=== PATIENT | female | born 1985 | race Caucasian/White ===

== ENCOUNTER 2020-05-03 00:32 | Day surgery (SDC) | payer OTHER, SELFPAY ==
[2020-05-03 13:05] VITALS: BP 120/93; PULSE 101; RESP 16; TEMP 36.7; O2SAT 100
[2020-05-03] MEDS: ACETAMINOPHEN 500 MG TABLET 1000 MG PO (13:33)
--- NOTE | 2020-05-03 14:04 | WPDANESEPPF ---
Anes - Initial Pre Proc Eval Procedure: Operation Date: 05/03/20 15:00 Proposed Procedures p Suction Dilation And Curettage - Misa Ortiz MD Date/Time: 05/03/20 14:04 Surgeon: Misa Ortiz MD Pre Op Diagnosis: Missed AB Patient Data Age: 34 Gender: F Height: 1.65 m Weight: 81.5 kg Last Vital Signs Temp 36.7 C 05/03/20 13:05 Pulse 101 H 05/03/20 13:05 Resp 16 05/03/20 13:05 BP 120/93 H 05/03/20 13:05 Pulse Ox 100 05/03/20 13:05 Allergies Allergy/AdvReac Type Severity Reaction Status Date / Time No Known Allergies Allergy Mild Verified 05/03/20 13:19 Home Medications Medication Instructions Recorded Confirmed Type fluticasone propionate 50 2 spray NASAL DAILY #18.2 ml 11/28/19 05/03/20 Rx mcg/actuation nasal spray,suspension ondansetron HCl 4 mg tablet 4 mg PO Q8H PRN #20 tablet 12/24/19 05/03/20 Rx acetaminophen-caffeine [Excedrin 2 tablet PO Q6H PRN 05/02/20 05/03/20 History Tension Headache] xdiovkyuot-wyernaedyy-pdv-cod 1 cap PO Q6-8H PRN 05/02/20 05/03/20 History clonazepam 0.5 mg PO BID 05/02/20 05/03/20 History cyclobenzaprine 5 mg PO TID PRN 05/02/20 05/03/20 History sumatriptan succinate 50 mg PO ONCE PRN 05/02/20 05/03/20 History trazodone 50 mg PO HS PRN 05/02/20 05/03/20 History magnesium chloride [Mag Release] 64 mg PO DAILY 05/03/20 05/03/20 History jpxsdgfw-amw-Jy-FA 1 tablet PO DAILY 05/03/20 05/03/20 History [] vitamin B complex 1 cap PO DAILY 05/03/20 05/03/20 History Patient hx anesthesia problems: none Family hx anesthesia problems: none PMFSH Past Medical History Medical History (Updated 05/03/20 @ 14:04 by Brandin Gutierrez DO) Allergic rhinitis Chronic migraine History of panic attacks Hx of thyroid nodule MDD (major depressive disorder), recurrent episode, moderate Migraine, unspecified, not intractable, without status migrainosus Family History Family History (Updated 01/11/14 @ 07:13 by DOCTOR UNKNOWN) Father Family history of arthritis Social History Social History (Updated 11/28/19 @ 09:43 by Ana Maria Waldrop) Social History: Smoking status: Never smoker Second hand tobacco smoke exposure: No Alcohol intake: current Drinks per week: 4 Substance use: never Substance use type: does not use Living arrangements: with family Additional living arrangements comments: AND CHILD Gender identity (if verbalized by the patient): Female Spiritual care concerns: No Anes - Eval Final PreProcedure Day of Procedure 05/03/20 14:04 Patient weight: overweight Heart: regular rate and rhythm Lungs: clear to auscultation and normal air movement Airway: Mallampati scale class II Neurological: alert and oriented Last oral intake: >/= 8 hours ASA classification: II Emergent: no Anesthetic plan: proceed Anesthesia type and monitoring: general GIVS and standard monitoring Informed Consent: The patient's anesthetic plan and its attendant risks and benefits were discussed with the patient/family/POA. Questions were solicited and answers provided to the satisfaction of the patient/family/POA.
[2020-05-03] MEDS: ONDANSETRON INJ 4 MG/2 ML VIAL IV PUSH (14:14)
[2020-05-03] MEDS: LACTATED RINGERS 1,000 ML 30 ML IV CONT (14:14)
--- NOTE | 2020-05-03 14:35 | WPDHPUPDATE1 ---
History and Physical Update Update Date/Time: 05/03/20 14:35 History and Physical has been reviewed, including an updated exam of the patient. There are NO changes in the patient's condition. Risks, benefits, and alternatives have been discussed and questions answered. Patient agrees to proceed with procedure.
[2020-05-03] MEDS: KETOROLAC 15 MG/ML VIAL (*BKC) IV PUSH (15:03)
[2020-05-03 15:12] VITALS: BP 118/76; PULSE 92; RESP 20
--- NOTE | 2020-05-03 15:14 | P.OP_ITS ---
Procedure Note - Detailed Date of procedure: 05/03/20 Pre-op diagnosis: Missed AB Post-op diagnosis: same Procedure performed: Suction D&C Description of procedure: The patient was taken the operating room. She has prepped and draped in dorsal lithotomy position after induction of mac anesthesia. A speculum was placed in the vagina. The cervix was grasped with a tenaculum. The cervix was injected at 3 and 9:00 a.m. with 1% lidocaine. The cervix was dilated up to 8 mm using Warner dilators. An 8 curved plastic suction curette was then applied to the intrauterine cavity. All of the surfaces in the intrauterine cavity were curettage under VAC. A sharp medium-size curette was then used to curettage all the surfaces to confirmed the removal of all the products conception. When all surfaces for bleed to be clean the curette was r emoved. The suction curette was then reapplied to remove all the debris. The procedure was terminated. The tenaculum was removed. The speculum was removed. The patient tolerated the procedure well. She was taken recovery room in stable condition. Anesthesia: MAC Surgeon: Misa Ortiz MD Estimated blood loss (mL): 25 Drains: No Packing: No Pathology: yes Complications: No immediate complications Condition: stable Disposition: PACU Findings: Normal vulva vagina and cervix. The moderate amounts of products conception. 8 cm uterus.
[2020-05-03] MEDS: fentaNYL CITRATE INJ (*CRX) 100 MCG/2 ML VIAL 25 MCG IV PUSH ×4 (15:21→15:37)
[2020-05-03] MEDS: oxyCODONE HCL (*CRX) 5 MG TAB IR PO (15:44)
== END 2020-05-03 16:24 | disposition home or self-care (01) ==
PROVIDERS: PCP Family Medicine; Visit Provider Obstetrics & Gynecology
PROC: (CPT 59820; principal; 2020-05-03 15:00)
DX: O02.1 Missed abortion (principal); F41.0 Panic disorder [episodic paroxysmal anxiety]; F32.9 Major depressive disorder, single episode, unspecified; J30.9 Allergic rhinitis, unspecified
CPT/HCPCS: 59820; 88305; A9270; J1885; J2250; J2405; J2704; J3010; J7120

== ENCOUNTER 2021-03-31 11:15 | Emergency (ER) | payer OTHER, SELFPAY ==
[2021-03-31 11:22] VITALS: BP 121/93; PULSE 89; RESP 16; TEMP 36.7; O2SAT 100
--- NOTE | 2021-03-31 11:34 | ED.WOUNDLAC ---
HPI - Wound/Laceration General Chief Complaint: Wound/Laceration Stated Complaint: lt hand thumb laceratin Time Seen by Provider: 03/31/21 11:25 Source: patient, family and RN notes reviewed History of Present Illness HPI narrative: Patient is a 35-year-old female who presents the urgent care with complaints of a laceration to the tip of the left thumb. Patient states it happened last night and she cut it with a shearing knife. Patient believes that she is up-to-date on her tetanus shot. States that the bleeding was controlled as of last night. No other acute complaints or injuries. No acute distress noted. Patient states that she has washed out the wound, cleaned it with peroxide and put Neosporin on it. Patient aware of the plan of care. Some parts of this dictation were generated by voice recognition software and may contain typographical and/or grammatical inaccuracies. Related Data Home Medications Medication Instructions Recorded Confirmed Excedrin Tension Headache 2 tablet PO Q6H PRN 05/02/20 05/03/20 xrqvrylphr-qymururanc-pgy-cod 1 cap PO Q6-8H PRN 05/02/20 05/03/20 clonazepam 0.5 mg PO BID 05/02/20 05/03/20 cyclobenzaprine 5 mg PO TID PRN 05/02/20 05/03/20 trazodone 50 mg PO HS PRN 05/02/20 05/03/20 magnesium chloride 64 mg PO DAILY 05/03/20 05/03/20 vitamin B complex 1 cap PO DAILY 05/03/20 05/03/20 xwuugtfcka-vrqhbhtmniscw-wltw cap 03/31/21 Allergies Allergy/AdvReac Type Severity Reaction Status Date / Time No Known Allergies Allergy Mild Verified 03/31/21 11:30 Review of Systems Review of Systems: CONSTITUTIONAL: Denies fever, chills, or sweats. EYES: Denies visual changes, redness, or discharge. ENT: Denies rhinorrhea, congestion, sore throat, or otalgia. CARDIOVASCULAR: Denies chest pain, palpitations, or edema. RESPIRATORY: Denies cough or dyspnea. GASTROINTESTINAL: Denies abdominal pain, nausea, vomiting, or diarrhea. GENITOURINARY: Denies dysuria or hematuria. SKIN: Reports of a laceration to the tip of the left thumb MUSCULOSKELETAL: Denies back pain, joint pain, or myalgia. NEUROLOGIC: Denies headache, numbness, or weakness. All other systems reviewed are negative, except as documented in HPI. [facility] Past Medical History Medical History (Updated 03/31/21 @ 11:39 by CHRISTY Catherine) Allergic rhinitis Chronic migraine History of panic attacks Hx of thyroid nodule MDD (major depressive disorder), recurrent episode, moderate Migraine, unspecified, not intractable, without status migrainosus Family History Family History (Updated 01/11/14 @ 07:13 by DOCTOR UNKNOWN) Father Family history of arthritis Social History Social History (Updated 11/28/19 @ 09:43 by Ana Maria Waldrop) Social History: Smoking status: Never smoker Second hand tobacco smoke exposure: No Alcohol intake: current Drinks per week: 4 Substance use: never Substance use type: does not use Additional living arrangements comments: AND CHILD Gender identity (if verbalized by the patient): Female Spiritual care concerns: No Comments At the time of my signature, I reviewed and agree with the nursing past medical, surgical, social, and family history. There is no relevant family history pertinent to the patient complaint. Exam Narrative: GENERAL: This is a well-nourished, well-developed patient, in no apparent distress. Anxious HEAD: normocephalic, atraumatic. EYES: PERRL. Sclera clear/white. Vision is grossly intact. EARS: External ears normal NOSE: External nose normal with no obvious nasal discharge, nares without redness, no rhinorrhea. THROAT: Mucous membranes moist NECK: Neck supple CARDIOVASCULAR: Regular rate and rhythm without murmurs, gallops, or rubs. RESPIRATORY: Clear to auscultation. Breath sounds equal bilaterally. No wheezes, rales, or rhonchi. SKIN: 0.5 cm circular approximated laceration to the tuft of the left thumb. Warm, intact with no suspici
== END 2021-03-31 12:16 | disposition home or self-care (01) ==
PROVIDERS: Emergency Provider Nurse Practitioner Family; PCP Physician Assistant
DX: S61.012A Laceration without foreign body of left thumb without damage to nail, initial encounter (principal); W26.0XXA Contact with knife, initial encounter; F32.9 Major depressive disorder, single episode, unspecified; F41.0 Panic disorder [episodic paroxysmal anxiety]
CPT/HCPCS: 12001; 99212; G0463

== ENCOUNTER 2021-04-20 22:56 | Emergency (ER) | payer OTHER, SELFPAY ==
[2021-04-20 23:01] VITALS: BP 130/79; PULSE 103; RESP 20; TEMP 36.7; O2SAT 100
--- NOTE | 2021-04-20 23:35 | PC.NURSE ---
Pt seen ambulating out of ED with steady, even, unassisted gait. Per application security consultant present in wr, pt seen throwing something while walking across parking lot. Once outside, pt had thrown her full urine cup with specimen onto the ground, which was collected by application security consultant and disposed of by raheel HUTSON. Pt seen by application security consultant leaving hospital after getting into parked vehicle. No longer present. removed from tracker board.
== END 2021-04-21 00:10 | disposition left against medical advice (07) ==
LOC: ANHED 23:39
PROVIDERS: PCP Physician Assistant
DX: G43.909 Migraine, unspecified, not intractable, without status migrainosus (principal)
CPT/HCPCS: 99199

== ENCOUNTER 2022-05-19 07:59 | Outpatient (RCR) | payer OTHER, SELFPAY | END 2022-08-12 23:59 | disposition home or self-care (01) | LOC: ANHLAB 07:59 | PROVIDERS: PCP Physician Assistant; Visit Provider Obstetrics & Gynecology | DX: O20.0 Threatened abortion (principal); Z3A.00 Weeks of gestation of pregnancy not specified | CPT/HCPCS: 36415; 84702 ==

== ENCOUNTER 2022-05-22 00:55 | Day surgery (SDC) | payer OTHER, SELFPAY ==
[2022-05-19 09:24] VITALS: BMI 33.7
--- NOTE | 2022-05-19 09:29 | PC.NURSE ---
Report to the Outpatient Waiting Room, entrance under the green pavilion located off [facility], at time 1130 on date 05/22/22. Planned Procedure Time: 1330. Time changes happen often and if your time is changed the preop area will call you the afternoon before. - You and your visitor will be asked to self-screen and do not enter if you have any COVID symptoms. - Only one visitor is requested with a max of two and NO children visitors are allowed at this time. - The patient visitor may be requested to leave or wait in car when not with patient due to distancing restrictions. - A mask is REQUIRED within the hospital. Patients may have clear liquids (water, carbonated beverages, clear teas, apple juice) until 3 hours prior to surgery with a maximum of 20 ounces. - No food from midnight until time of surgery Take the following medications with a SIP of water the morning of surgery: NONE Medications to discontinue per physician: N/A Date to take last dose: N/A Please no make-up, nail welsh, hairspray, perfume, deodorant, or body powder the day of surgery. No jewelry (including any body piercings) or valuables the day of surgery, leave them at home. Please take a shower or bath the night before, or the morning of, surgery with an antibacterial soap. Wear comfortable, loose fitting clothing. - Jewelry must be removed prior to entering the operating room. Rings and piercings that are not removed may be cut off. - The hospital will not accept responsibility for valuables. - Please leave all valuables, including medications, at home the day of surgery. If you are going home after surgery, a licensed limousine driver must drive you home. - NO public transportation without another adult if you receive anesthesia. - We recommend that an adult stay with you for 24 hours following discharge. - We also recommend that you do not drive, make important decision, drink alcoholic beverages, or take any drugs that were not prescribed by your health care provider for at least 24 hours after your discharge time. Follow any additional instructions given to you from your surgeon. If you or anyone in your household have experienced Covid symptoms in the past week, please notify your surgeon or the nurse liaison at the phone number below for possible testing. Telephone instructions given to PT - ADILENE RODRIGUEZ and asked if any additional questions and then verbalized understanding. Patient advised to call surgeon office or pre surgery nurse liaison [phone] if any additional questions.
--- NOTE | 2022-05-21 09:48 | P.PNAN_ITS ---
Anes - Initial Pre Proc Eval Procedure: Operation Date: 05/22/22 12:00 Proposed Procedures p Suction Dilatation and Curettage - Misa Ortiz MD Date/Time: 05/21/22 09:48 Surgeon: Misa Ortiz MD Pre Op Diagnosis: missed AB Patient Data Age: 36 Gender: F Height: 1.64 m Weight: 90.72 kg Allergies Allergy/AdvReac Type Severity Reaction Status Date / Time No Known Allergies Allergy Mild Verified 05/22/22 10:07 Home Medications Medication Instructions Recorded Confirmed Type butalbital 50 mg-acetaminophen 300 1 cap PO Q6-8H PRN pain 05/02/20 05/19/22 History mg-caffeine 40 mg-codeine 30 mg cap aspirin 81 mg chewable tablet 81 mg PO DAILY 05/19/22 05/19/22 History progesterone micronized 200 mg 200 mg PO DAILY 05/19/22 05/19/22 History capsule Patient hx anesthesia problems: none Family hx anesthesia problems: none Results Review: All pre-operative results and documents have been reviewed as part of the pre- operative evaluation. [facility] Past Medical History Medical History (Updated 05/21/22 @ 09:49 by Edwin Alcaraz MD) Allergic rhinitis Chronic migraine History of panic attacks Hx of thyroid nodule MDD (major depressive disorder), recurrent episode, moderate Migraine, unspecified, not intractable, without status migrainosus Obesity Family History Family History (Updated 01/11/14 @ 07:13 by DOCTOR UNKNOWN) Father Family history of arthritis Social History Social History (Updated 11/28/19 @ 09:43 by Ana Maria Waldrop) Social History: Smoking status: Never smoker Second hand tobacco smoke exposure: No Alcohol intake: current Drinks per week: 4 Alcohol use details: WHEN NOT Substance use: never Substance use type: does not use Living arrangements: with family Additional living arrangements comments: AND CHILD Gender identity (if verbalized by the patient): Female Spiritual care concerns: No Anes - Eval Final PreProcedure Day of Procedure 05/21/22 09:48 Patient weight: obese Heart: regular rate and rhythm Lungs: clear to auscultation and normal air movement Airway: Mallampati scale class II Neurological: alert and oriented Last oral intake: >/= 8 hours ASA classification: II Emergent: no Anesthetic plan: proceed Anesthesia type and monitoring: general GIVS and standard monitoring Results Review: All pre-operative results and documents have been reviewed as part of the pre- operative evaluation. Informed Consent: The patient's anesthetic plan and its attendant risks and benefits were discussed with the patient/family/POA. Questions were solicited and answers provided to the satisfaction of the patient/family/POA.
[2022-05-22 10:09] VITALS: BP 129/81; PULSE 108; RESP 16; TEMP 36.4; O2SAT 99
[2022-05-22] MEDS: LACTATED RINGERS 1,000 ML 30 ML IV CONT (10:25)
[2022-05-22] MEDS: ACETAMINOPHEN 500 MG TABLET 1000 MG PO (10:30)
--- NOTE | 2022-05-22 12:08 | WPDHPUPDATE1 ---
History and Physical Update Update Date/Time: 05/22/22 12:08 History and Physical has been reviewed, including an updated exam of the patient. There are NO changes in the patient's condition. Risks, benefits, and alternatives have been discussed and questions answered. Patient agrees to proceed with procedure.
--- NOTE | 2022-05-22 12:11 | PM.IMHP ---
H&P: HPI History of Present Illness Date/Time: 05/22/22 12:11 Chief Complaint: Missed Narrative: this patient is a 36-year-old female with a missed . We have agreed for suction D& C. She understands there is risk. She does understands that injuries may occur that resulted in hospitalization, more surgery, and severe illness. She understands the risk of hemorrhage infection Review of Systems Review of Systems: All systems reviewed & are unremarkable except as noted in HPI and below Constitutional: Constitutional: Denies chills, Denies fatigue, Denies fever(s) and Denies weakness Eyes: Eyes: Denies blurry vision, Denies change in vision, Denies loss of peripheral vision, Denies loss of vision, Denies other visual disturbances and Denies eye pain ENT: Denies vertigo, Denies dizziness, Denies hearing loss, Denies mouth pain, Denies nasal obstruction, Denies neck mass and Denies neck pain Cardiovascular: Cardiovascular: Denies chest pain, Denies diaphoresis, Denies syncope, Denies leg edema and Denies dyspnea Respiratory: Respiratory: Denies chest congestion, Denies cough, Denies hemoptysis, Denies dyspnea and Denies wheezing Gastrointestinal: Gastrointestinal: Denies abdominal pain, Denies constipation, Denies diarrhea, Denies nausea and Denies vomiting Genitourinary: Genitourinary: Denies hematuria, Denies change in libido, Denies nocturia, Denies genital lesions, Denies flank pain and Denies urinary urgency Musculoskeletal: Musculoskeletal: Denies abnormal gait, Denies back pain, Denies myalgias, Denies arthralgias, Denies joint swelling, Denies muscle weakness and Denies neck pain Integumentary/Breasts: Skin/Breast: Denies swelling, Denies breast pain, Denies breast mass, Denies dry skin, Denies nipple discharge, Denies unusual bruising and Denies jaundice Neurologic: Denies Neuro-related abnormal movements, Denies Abnormal speech present, Denies abnormal gait, Denies behavioral changes, Denies confusion, Denies vertigo, Denies dizziness, Denies syncope, Denies loss of vision, Denies memory loss, Denies convulsions and Denies weakness Psychiatric: Psychiatric: Denies abnormal sleep pattern, Denies behavioral changes, Denies change in libido, Denies confusion, Denies depression, Denies anhedonia and Denies memory loss Endocrine: Endocrine: Reports no additional endocrine complaints, Denies change in libido and Denies fatigue Hematologic/Lymphatic: Hematologic/Lymphatic: Reports no additional hematologic/lymphatic complaints Allergic/Immunologic: Allergic/Immunologic: Reports no additional allergic/immunologic complaints and Denies wheezing PMFSH Past Medical History Medical History (Updated 05/22/22 @ 12:13 by Misa Ortiz MD) Allergic rhinitis Chronic migraine History of panic attacks Hx of thyroid nodule MDD (major depressive disorder), recurrent episode, moderate Migraine, unspecified, not intractable, without status migrainosus Obesity Family History Family History (Updated 01/11/14 @ 07:13 by DOCTOR UNKNOWN) Father Family history of arthritis Social History Social History (Updated 11/28/19 @ 09:43 by Ana Marai Waldrop) Social History: Smoking status: Never smoker Second hand tobacco smoke exposure: No Alcohol intake: current Drinks per week: 4 Alcohol use details: WHEN NOT Substance use: never Substance use type: does not use Living arrangements: with family Additional living arrangements comments: AND CHILD Gender identity (if verbalized by the patient): Female Spiritual care concerns: No Meds Home Medications and Allergies Home Medications Medication Instructions Recorded Confirmed Type butalbital 50 mg-acetaminophen 300 1 cap PO Q6-8H PRN pain 05/02/20 05/22/22 History mg-caffeine 40 mg-codeine 30 mg cap aspirin 81 mg chewable tablet 81 mg PO DAILY 05/19/22 05/22/22 History progesterone micronized 200 mg 200 mg PO
[2022-05-22] MEDS: LIDOCAINE 1% BUFFERED WITH 8.4% SODIUM BICARB 1 ML SYRINGE 10 ML INFILTRATE (12:34)
[2022-05-22 12:44] VITALS: BP 134/81; PULSE 107; RESP 18; O2SAT 96
--- NOTE | 2022-05-22 12:50 | P.OP_ITS ---
Procedure Note - Detailed Date of Procedure 05/22/22 Pre-op Diagnosis missed AB Post-op Diagnosis Same Procedure Performed Suction D&C Surgeon Misa Ortiz MD Anesthesia MAC Indications missed Findings normal-appearing vulva vagina and cervix to. Moderate amount of products conception within the uterus. 8 cm uterus Description of Procedure the patient was taken the operating room. She was prepped and draped in dorsal lithotomy position after induction of mac anesthesia. A speculum was placed in the vagina. Cervix grasped with tenaculum. The cervix was dilated to about 1 cm Using Warner dilators. A 8. Icelandic curved curette was used to perform suction D&C. The curette was introduced and vacuum was applied. The curette was removed over all surfaces of the intrauterine cavity multiple times. This was done until all the surfaces were clear and had the familiar grainy texture they can be felt through the instrument. A sharp curette was then used to curettage all the surfaces. The suction cup was then reapplied 1 more time to remove any debris. The instruments were removed. The speculum and tenaculum were removed. The patient tolerated the procedure well. She was taken recovery room stable condition. Estimated Blood Loss 50 Drains No Packing No Pathology Yes Complications No immediate complications Condition Stable Disposition PACU
[2022-05-22] MEDS: oxyCODONE HCL (*CRX) 5 MG TAB IR PO (13:10)
[2022-05-22 13:15] VITALS: BP 123/86; PULSE 83; RESP 18; O2SAT 100
[2022-05-22 13:45] VITALS: BP 125/86; PULSE 92; RESP 16; O2SAT 100
== END 2022-05-22 13:50 | disposition home or self-care (01) ==
PROVIDERS: PCP Physician Assistant; Visit Provider Obstetrics & Gynecology
PROC: (CPT 59820; principal; 2022-05-22 12:00)
DX: O02.1 Missed abortion (principal); Z3A.00 Weeks of gestation of pregnancy not specified
CPT/HCPCS: 59820; 88305; A9270; J2250; J2704; J3010; J7120

== ENCOUNTER 2024-09-21 15:22 | Outpatient (CLI) | payer OTHER, SELFPAY ==
--- NOTE | ~2024-09-21 | XR_ITS ---
Left ankle Technique: AP, oblique, and lateral views were obtained. Clinical History: Injury Findings: No acute fracture or dislocation is seen. Osseous alignment is anatomic. Ankle mortise and other visualized joint spaces are preserved. Soft tissues are otherwise unremarkable. Impression: Unremarkable left ankle. Reviewed, dictated and finalized at location . Impression: Unremarkable left ankle.
== END 2024-09-21 15:23 | disposition home or self-care (01) ==
PROVIDERS: PCP Physician Assistant; Visit Provider Physician Assistant
DX: S99.912A Unspecified injury of left ankle, initial encounter (principal); X58.XXXA Exposure to other specified factors, initial encounter; M79.672 Pain in left foot
CPT/HCPCS: 73610; 73630